=== PATIENT | male | born 1955 | race Caucasian/White ===

== ENCOUNTER 2022-02-04 16:12 | Inpatient (IN) | payer MEDICAID ==
[~2022-02-04] VITALS: Ht 182.9 cm; Wt 98.4 kg
[2022-02-04] MEDS ORDERED: DEXTROSE 50%-WATER 25 GM/50 ML SYRINGE IVP PRN (20:00)
[2022-02-04] MEDS ORDERED: ACETAMINOPHEN 325 MG TABLET PO PRN (20:00)
[2022-02-04] MEDS ORDERED: POLYETHYLENE GLYCOL 3350 17 GM PACKET PO PRN (20:15)
[2022-02-04] MEDS ORDERED: BISACODYL 10 MG RECTAL RECTAL SUPPOSITORY PR PRN (20:15)
[2022-02-04 21:20] VITALS: BP 151/82
[2022-02-04] MEDS: SENNA 187 MG TABLET PO SCH (21:25)
[2022-02-04] MEDS: ATORVASTATIN CALCIUM 40 MG TABLET PO SCH (21:25)
[2022-02-04] MEDS: DOCUSATE SODIUM 100 MG CAPSULE PO SCH (21:25)
[2022-02-04] MEDS: HydrALAZINE HCL 25 MG TABLET PO SCH (21:25)
[2022-02-04] MEDS: HEPARIN SODIUM,PORCINE 5,000 UNITS/ML VIAL SQ SCH (21:26)
[2022-02-04] MEDS: INSULIN GLARGINE,HUM.REC.ANLOG 100 UNITS/ML SQ SCH (21:31)
[2022-02-04] MEDS: INSULIN LISPRO 100 UNITS/ML SQ PRN (21:46)
[2022-02-04] MEDS ORDERED: INSULIN LISPRO 100 UNITS/ML SQ PRN (23:00)
[2022-02-04] MEDS ORDERED: INFLUENZA VIRUS VACCINE QVS 2022-23 (6MO+)/PF 60 MCG/0.5 ML SYRINGE IM. ONE (23:30)
[2022-02-04] MEDS ORDERED: PNEUMOCOCCAL VACCINE POLYVALENT 0.5 ML VIAL [PPSV23] IM. ONE (23:30)
[2022-02-04 23:31] LABS: GLUCOMETER DEV NAME(LOC) 2WR.1C; GLUCOSE,POINT OF CARE 241 MG/DL (70-110)
[2022-02-05 07:01] LABS: GLUCOMETER DEV NAME(LOC) 2WR.2B; GLUCOSE,POINT OF CARE 212 MG/DL (70-110)
[2022-02-05] MEDS ORDERED: INSULIN LISPRO 100 UNITS/ML SQ PRN (07:30)
[2022-02-05] MEDS ORDERED: INSULIN LISPRO 100 UNITS/ML SQ SCH (07:30)
[2022-02-05 07:51] LABS: BASOPHILS % (AUTO) 0.2 % (0.0-2.0); EOSINOPHILS % (AUTO) 2.3 % (1.0-6.0); HEMATOCRIT 44.4 % (41-53); HEMOGLOBIN 14.5 g/dL (13.5-17.5); LYMPHOCYTES # (AUTO) 2.8 K/uL (1.0-4.8); LYMPHOCYTES % (AUTO) 27.3 % (22.0-44.0); MEAN CORPUSCULAR HGB CONC 32.7 G/dL (31.0-37.0); MEAN CORPUSCULAR VOLUME 89 fL (80-100); NEUTROPHILS # (AUTO) 6.1 K/uL (1.8-7.7); NEUTROPHILS % (AUTO) 60.2 % (40.0-70.0); PLATELET COUNT (AUTO) 262 K/uL (150-450); RED BLOOD CELL COUNT(AUTO) 5.01 MIL/uL (4.50-5.90); RED CELL DISTRIBUTION WIDTH 15.1 % (11.5-14.5)
[2022-02-05] MEDS: INSULIN LISPRO 100 UNITS/ML SQ PRN ×4 (07:52→20:49)
[2022-02-05] MEDS: ETHYL ALCOHOL 62% ANTISEPTIC NASAL SANITIZER 0.6 ML AMPUL NASAL SCH ×2 (07:54→20:43)
[2022-02-05] MEDS: DOCUSATE SODIUM 100 MG CAPSULE PO SCH ×2 (07:57→20:44)
[2022-02-05] MEDS: MetFORMIN HCL 500 MG TABLET PO SCH ×2 (07:58→16:20)
[2022-02-05 07:59] LABS: ALBUMIN 3.2 g/dL (3.4-5.0); BILIRUBIN,TOTAL 0.7 mg/dL (0.1-1.0); CREATININE 1.43 mg/dL (0.60-1.30); POTASSIUM 3.3 mmol/L (3.5-5.1); TOTAL PROTEIN, SERUM 6.9 g/dL (6.4-8.2)
[2022-02-05] MEDS: ASPIRIN 81 MG CHEWABLE TABLET PO SCH (07:59)
[2022-02-05] MEDS: LOSARTAN POTASSIUM 50 MG TABLET PO SCH (08:01)
[2022-02-05] MEDS: AmLODIPine BESYLATE 10 MG TABLET PO SCH (08:03)
[2022-02-05] MEDS: HEPARIN SODIUM,PORCINE 5,000 UNITS/ML VIAL SQ SCH ×3 (08:04→20:44)
[2022-02-05] MEDS: HydrALAZINE HCL 25 MG TABLET PO SCH ×3 (08:05→20:44)
[2022-02-05] MEDS: CHLORTHALIDONE 25 MG TABLET PO SCH (09:00)
[2022-02-05 09:04] VITALS: BP 145/90
[2022-02-05 13:58] LABS: GLUCOMETER DEV NAME(LOC) 2WR.1C; GLUCOSE,POINT OF CARE 242 MG/DL (70-110)
[2022-02-05] MEDS: INSULIN LISPRO 100 UNITS/ML SQ SCH ×2 (14:26→18:23)
[2022-02-05 19:17] LABS: GLUCOMETER DEV NAME(LOC) 2WR.1C; GLUCOSE,POINT OF CARE 283 MG/DL (70-110)
[2022-02-05 20:30] VITALS: BP 136/85
[2022-02-05] MEDS: SENNA 187 MG TABLET PO SCH (20:44)
[2022-02-05] MEDS: ATORVASTATIN CALCIUM 40 MG TABLET PO SCH (20:44)
[2022-02-05] MEDS: INSULIN GLARGINE,HUM.REC.ANLOG 100 UNITS/ML SQ SCH (20:48)
[2022-02-05] MEDS: MELATONIN 3 MG TABLET PO PRN (20:51)
[2022-02-05 21:17] LABS: GLUCOMETER DEV NAME(LOC) 2WR.2B; GLUCOSE,POINT OF CARE 177 MG/DL (70-110)
[2022-02-06] MEDS ORDERED: DOCU-385 PO (02:58)
[2022-02-06] MEDS ORDERED: AMLO-258 PO (02:58)
[2022-02-06] MEDS ORDERED: INSLAN SQ (02:58)
[2022-02-06] MEDS ORDERED: HYDR25TA84 PO (02:58)
[2022-02-06] MEDS ORDERED: CHL25 PO (02:58)
[2022-02-06] MEDS ORDERED: METF-1211 PO (02:58)
[2022-02-06] MEDS ORDERED: ATOR40TA28 PO (02:58)
[2022-02-06] MEDS ORDERED: LOSA-381 PO (02:58)
[2022-02-06] MEDS ORDERED: SENN8.6T90 PO (02:58)
[2022-02-06] MEDS ORDERED: ASPI-1450 PO (02:58)
[2022-02-06 07:52] LABS: GLUCOMETER DEV NAME(LOC) 2WR.2B; GLUCOSE,POINT OF CARE 142 MG/DL (70-110)
[2022-02-06] MEDS: MetFORMIN HCL 500 MG TABLET PO SCH ×2 (08:00→17:37)
[2022-02-06] MEDS: HEPARIN SODIUM,PORCINE 5,000 UNITS/ML VIAL SQ SCH ×3 (08:01→20:49)
[2022-02-06] MEDS: ASPIRIN 81 MG CHEWABLE TABLET PO SCH (08:01)
[2022-02-06] MEDS: AmLODIPine BESYLATE 10 MG TABLET PO SCH (08:01)
[2022-02-06] MEDS: DOCUSATE SODIUM 100 MG CAPSULE PO SCH ×2 (08:01→20:49)
[2022-02-06] MEDS: LOSARTAN POTASSIUM 50 MG TABLET PO SCH (08:01)
[2022-02-06] MEDS: INSULIN LISPRO 100 UNITS/ML SQ SCH ×3 (08:03→17:39)
[2022-02-06] MEDS: INSULIN LISPRO 100 UNITS/ML SQ PRN ×4 (08:05→20:55)
[2022-02-06] MEDS: HydrALAZINE HCL 25 MG TABLET PO SCH ×3 (08:13→20:49)
[2022-02-06] MEDS: ETHYL ALCOHOL 62% ANTISEPTIC NASAL SANITIZER 0.6 ML AMPUL NASAL SCH ×2 (08:13→20:53)
[2022-02-06 08:15] VITALS: BP 148/95
[2022-02-06] MEDS: CHLORTHALIDONE 25 MG TABLET PO SCH (09:07)
[2022-02-06] MEDS ORDERED: POTASSIUM CHLORIDE 20 MEQ ER TABLET PO ONE (09:15)
[2022-02-06 10:02] VITALS: BP 128/85
[2022-02-06 12:10] VITALS: BP 127/80
[2022-02-06 13:13] LABS: GLUCOMETER DEV NAME(LOC) 2WR.2B; GLUCOSE,POINT OF CARE 174 MG/DL (70-110)
[2022-02-06 17:00] VITALS: BP 133/67
[2022-02-06 17:46] LABS: GLUCOMETER DEV NAME(LOC) 2WR.2B; GLUCOSE,POINT OF CARE 221 MG/DL (70-110)
[2022-02-06 20:10] VITALS: BP 147/79
[2022-02-06] MEDS: SENNA 187 MG TABLET PO SCH (20:49)
[2022-02-06] MEDS: ATORVASTATIN CALCIUM 40 MG TABLET PO SCH (20:49)
[2022-02-06] MEDS: MELATONIN 3 MG TABLET PO PRN (20:49)
[2022-02-06] MEDS: INSULIN GLARGINE,HUM.REC.ANLOG 100 UNITS/ML SQ SCH (20:54)
[2022-02-06 21:21] LABS: GLUCOMETER DEV NAME(LOC) 2WR.2B; GLUCOSE,POINT OF CARE 161 MG/DL (70-110)
[2022-02-07 07:11] LABS: GLUCOMETER DEV NAME(LOC) 2WR.2B; GLUCOSE,POINT OF CARE 148 MG/DL (70-110)
[2022-02-07 08:00] LABS: CREATININE 1.42 mg/dL (0.60-1.30); POTASSIUM 3.5 mmol/L (3.5-5.1)
[2022-02-07 09:03] VITALS: BP 133/79
[2022-02-07] MEDS: INSULIN LISPRO 100 UNITS/ML SQ SCH ×3 (09:21→17:33)
[2022-02-07] MEDS: INSULIN LISPRO 100 UNITS/ML SQ PRN ×3 (09:21→17:33)
[2022-02-07] MEDS: DOCUSATE SODIUM 250 MG CAPSULE PO SCH ×2 (09:24→20:42)
[2022-02-07] MEDS: HEPARIN SODIUM,PORCINE 5,000 UNITS/ML VIAL SQ SCH ×3 (09:24→20:41)
[2022-02-07] MEDS: ASPIRIN 81 MG CHEWABLE TABLET PO SCH (09:24)
[2022-02-07] MEDS: HydrALAZINE HCL 25 MG TABLET PO SCH ×3 (09:25→20:42)
[2022-02-07] MEDS: AmLODIPine BESYLATE 10 MG TABLET PO SCH (09:25)
[2022-02-07] MEDS: MetFORMIN HCL 500 MG TABLET PO SCH ×2 (09:25→17:32)
[2022-02-07] MEDS: LOSARTAN POTASSIUM 50 MG TABLET PO SCH (09:26)
[2022-02-07] MEDS: ETHYL ALCOHOL 62% ANTISEPTIC NASAL SANITIZER 0.6 ML AMPUL NASAL SCH ×2 (09:29→20:54)
[2022-02-07] MEDS: CHLORTHALIDONE 25 MG TABLET PO SCH (09:29)
[2022-02-07] MEDS: MECLIZINE HCL 25 MG TABLET PO PRN (12:20)
[2022-02-07 12:56] LABS: GLUCOMETER DEV NAME(LOC) 2WR.1C; GLUCOSE,POINT OF CARE 154 MG/DL (70-110)
[2022-02-07 18:32] LABS: GLUCOMETER DEV NAME(LOC) 2WR.1C; GLUCOSE,POINT OF CARE 141 MG/DL (70-110)
[2022-02-07 20:00] VITALS: BP 126/89
[2022-02-07] MEDS: ATORVASTATIN CALCIUM 40 MG TABLET PO SCH (20:41)
[2022-02-07] MEDS: INSULIN GLARGINE,HUM.REC.ANLOG 100 UNITS/ML SQ SCH (20:41)
[2022-02-07] MEDS: MELATONIN 3 MG TABLET PO PRN (20:42)
[2022-02-07] MEDS: SENNA 187 MG TABLET PO SCH (20:42)
[2022-02-07 21:31] LABS: GLUCOMETER DEV NAME(LOC) 2WR.1C; GLUCOSE,POINT OF CARE 131 MG/DL (70-110)
[2022-02-08 07:51] LABS: GLUCOMETER DEV NAME(LOC) 2WR.1C; GLUCOSE,POINT OF CARE 113 MG/DL (70-110)
[2022-02-08] MEDS: HydrALAZINE HCL 25 MG TABLET PO SCH ×3 (08:12→20:47)
[2022-02-08] MEDS: HEPARIN SODIUM,PORCINE 5,000 UNITS/ML VIAL SQ SCH ×3 (08:12→20:48)
[2022-02-08] MEDS: MetFORMIN HCL 500 MG TABLET PO SCH ×2 (08:12→17:14)
[2022-02-08] MEDS: INSULIN LISPRO 100 UNITS/ML SQ SCH ×3 (08:13→17:07)
[2022-02-08] MEDS: ETHYL ALCOHOL 62% ANTISEPTIC NASAL SANITIZER 0.6 ML AMPUL NASAL SCH ×2 (08:14→20:47)
[2022-02-08] MEDS: DOCUSATE SODIUM 250 MG CAPSULE PO SCH ×2 (08:15→20:47)
[2022-02-08] MEDS: ASPIRIN 81 MG CHEWABLE TABLET PO SCH (08:15)
[2022-02-08] MEDS: LOSARTAN POTASSIUM 50 MG TABLET PO SCH (08:17)
[2022-02-08] MEDS: AmLODIPine BESYLATE 10 MG TABLET PO SCH (08:17)
[2022-02-08] MEDS: CHLORTHALIDONE 25 MG TABLET PO SCH (08:17)
[2022-02-08 08:56] VITALS: BP 138/68
[2022-02-08] MEDS: INSULIN LISPRO 100 UNITS/ML SQ PRN (11:36)
[2022-02-08 11:47] LABS: GLUCOMETER DEV NAME(LOC) 2WR.2B; GLUCOSE,POINT OF CARE 181 MG/DL (70-110)
[2022-02-08 17:10] VITALS: BP 127/76
[2022-02-08 17:47] LABS: GLUCOMETER DEV NAME(LOC) 2WR.2B; GLUCOSE,POINT OF CARE 126 MG/DL (70-110)
[2022-02-08 20:14] VITALS: BP 138/91
[2022-02-08] MEDS: ATORVASTATIN CALCIUM 40 MG TABLET PO SCH (20:47)
[2022-02-08] MEDS: SENNA 187 MG TABLET PO SCH (20:47)
[2022-02-08] MEDS: MELATONIN 3 MG TABLET PO PRN (20:47)
[2022-02-08] MEDS: INSULIN GLARGINE,HUM.REC.ANLOG 100 UNITS/ML SQ SCH (20:48)
[2022-02-08 21:02] LABS: GLUCOMETER DEV NAME(LOC) 2WR.2B; GLUCOSE,POINT OF CARE 138 MG/DL (70-110)
[2022-02-09 07:21] LABS: GLUCOMETER DEV NAME(LOC) 2WR.1C; GLUCOSE,POINT OF CARE 123 MG/DL (70-110)
[2022-02-09] MEDS: MetFORMIN HCL 500 MG TABLET PO SCH ×2 (07:21→15:53)
[2022-02-09] MEDS: HydrALAZINE HCL 25 MG TABLET PO SCH ×3 (07:21→20:58)
[2022-02-09] MEDS: AmLODIPine BESYLATE 10 MG TABLET PO SCH (07:21)
[2022-02-09] MEDS: CHLORTHALIDONE 25 MG TABLET PO SCH (07:21)
[2022-02-09] MEDS: ASPIRIN 81 MG CHEWABLE TABLET PO SCH (07:21)
[2022-02-09] MEDS: DOCUSATE SODIUM 250 MG CAPSULE PO SCH ×2 (07:21→20:58)
[2022-02-09] MEDS: LOSARTAN POTASSIUM 50 MG TABLET PO SCH (07:22)
[2022-02-09] MEDS: HEPARIN SODIUM,PORCINE 5,000 UNITS/ML VIAL SQ SCH ×3 (07:22→20:58)
[2022-02-09] MEDS: ETHYL ALCOHOL 62% ANTISEPTIC NASAL SANITIZER 0.6 ML AMPUL NASAL SCH ×2 (07:22→20:58)
[2022-02-09] MEDS: INSULIN LISPRO 100 UNITS/ML SQ SCH ×3 (07:33→16:44)
[2022-02-09 10:04] VITALS: BP 116/75
[2022-02-09] MEDS: INSULIN LISPRO 100 UNITS/ML SQ PRN (11:39)
[2022-02-09 11:42] LABS: GLUCOMETER DEV NAME(LOC) 2WR.2B; GLUCOSE,POINT OF CARE 179 MG/DL (70-110)
[2022-02-09 15:44] VITALS: BP 124/67
[2022-02-09 17:01] LABS: GLUCOMETER DEV NAME(LOC) 2WR.2B; GLUCOSE,POINT OF CARE 122 MG/DL (70-110)
[2022-02-09 20:01] VITALS: BP 153/89
[2022-02-09] MEDS: MELATONIN 3 MG TABLET PO PRN (20:58)
[2022-02-09] MEDS: ATORVASTATIN CALCIUM 40 MG TABLET PO SCH (20:58)
[2022-02-09] MEDS: SENNA 187 MG TABLET PO SCH (20:58)
[2022-02-09] MEDS: INSULIN GLARGINE,HUM.REC.ANLOG 100 UNITS/ML SQ SCH (20:59)
[2022-02-09 21:00] VITALS: BP 137/88
[2022-02-10 05:36] LABS: GLUCOMETER DEV NAME(LOC) 2WR.1C; GLUCOSE,POINT OF CARE 98 MG/DL (70-110)
[2022-02-10 07:00] VITALS: BP_SYST 13
[2022-02-10 07:16] LABS: GLUCOMETER DEV NAME(LOC) 2WR.2B; GLUCOSE,POINT OF CARE 96 MG/DL (70-110)
[2022-02-10] MEDS: CHLORTHALIDONE 25 MG TABLET PO SCH (08:15)
[2022-02-10] MEDS: ASPIRIN 81 MG CHEWABLE TABLET PO SCH (08:15)
[2022-02-10] MEDS: HydrALAZINE HCL 25 MG TABLET PO SCH ×3 (08:15→20:25)
[2022-02-10] MEDS: MetFORMIN HCL 500 MG TABLET PO SCH ×2 (08:15→17:38)
[2022-02-10] MEDS: DOCUSATE SODIUM 250 MG CAPSULE PO SCH ×2 (08:15→20:25)
[2022-02-10] MEDS: LOSARTAN POTASSIUM 50 MG TABLET PO SCH (08:15)
[2022-02-10] MEDS: AmLODIPine BESYLATE 10 MG TABLET PO SCH (08:15)
[2022-02-10] MEDS: HEPARIN SODIUM,PORCINE 5,000 UNITS/ML VIAL SQ SCH ×3 (08:16→20:25)
[2022-02-10] MEDS: INSULIN LISPRO 100 UNITS/ML SQ SCH ×3 (08:19→16:50)
[2022-02-10 08:41] VITALS: BP 143/90
[2022-02-10] MEDS: ETHYL ALCOHOL 62% ANTISEPTIC NASAL SANITIZER 0.6 ML AMPUL NASAL SCH ×2 (10:07→20:25)
[2022-02-10 12:26] LABS: GLUCOMETER DEV NAME(LOC) 2WR.2B; GLUCOSE,POINT OF CARE 133 MG/DL (70-110)
[2022-02-10] MEDS: INSULIN LISPRO 100 UNITS/ML SQ PRN ×2 (16:51→20:37)
[2022-02-10 17:57] LABS: GLUCOMETER DEV NAME(LOC) 2WR.2B; GLUCOSE,POINT OF CARE 162 MG/DL (70-110)
[2022-02-10 20:00] VITALS: BP 146/86
[2022-02-10] MEDS: SENNA 187 MG TABLET PO SCH (20:25)
[2022-02-10] MEDS: ATORVASTATIN CALCIUM 40 MG TABLET PO SCH (20:25)
[2022-02-10] MEDS: INSULIN GLARGINE,HUM.REC.ANLOG 100 UNITS/ML SQ SCH (20:35)
[2022-02-10 20:55] LABS: GLUCOMETER DEV NAME(LOC) 2WR.2B; GLUCOSE,POINT OF CARE 176 MG/DL (70-110)
[2022-02-11 06:32] LABS: GLUCOMETER DEV NAME(LOC) 2WR.2B; GLUCOSE,POINT OF CARE 113 MG/DL (70-110)
[2022-02-11 08:00] VITALS: BP 136/83
[2022-02-11] MEDS: HEPARIN SODIUM,PORCINE 5,000 UNITS/ML VIAL SQ SCH ×3 (08:16→20:32)
[2022-02-11] MEDS: MetFORMIN HCL 500 MG TABLET PO SCH ×2 (08:17→17:29)
[2022-02-11] MEDS: CHLORTHALIDONE 25 MG TABLET PO SCH (08:18)
[2022-02-11] MEDS: LOSARTAN POTASSIUM 50 MG TABLET PO SCH (08:18)
[2022-02-11] MEDS: ASPIRIN 81 MG CHEWABLE TABLET PO SCH (08:18)
[2022-02-11] MEDS: HydrALAZINE HCL 25 MG TABLET PO SCH ×3 (08:19→20:32)
[2022-02-11] MEDS: AmLODIPine BESYLATE 10 MG TABLET PO SCH (08:20)
[2022-02-11] MEDS: ETHYL ALCOHOL 62% ANTISEPTIC NASAL SANITIZER 0.6 ML AMPUL NASAL SCH ×2 (08:20→20:30)
[2022-02-11] MEDS: DOCUSATE SODIUM 250 MG CAPSULE PO SCH ×2 (08:20→20:35)
[2022-02-11] MEDS: INSULIN LISPRO 100 UNITS/ML SQ SCH ×3 (08:25→17:35)
[2022-02-11] MEDS: MECLIZINE HCL 25 MG TABLET PO PRN (09:28)
[2022-02-11 19:36] LABS: GLUCOMETER DEV NAME(LOC) 2WR.2B; GLUCOSE,POINT OF CARE 127 MG/DL (70-110)
[2022-02-11 20:01] VITALS: BP 128/72
[2022-02-11] MEDS: SENNA 187 MG TABLET PO SCH (20:31)
[2022-02-11] MEDS: MELATONIN 3 MG TABLET PO PRN (20:32)
[2022-02-11] MEDS: ATORVASTATIN CALCIUM 40 MG TABLET PO SCH (20:32)
[2022-02-11] MEDS: INSULIN GLARGINE,HUM.REC.ANLOG 100 UNITS/ML SQ SCH (20:33)
[2022-02-11 20:41] LABS: GLUCOMETER DEV NAME(LOC) 2WR.2B; GLUCOSE,POINT OF CARE 121 MG/DL (70-110)
[2022-02-11 21:26] LABS: GLUCOMETER DEV NAME(LOC) 2WR.1C; GLUCOSE,POINT OF CARE 94 MG/DL (70-110)
[2022-02-12 07:46] LABS: GLUCOMETER DEV NAME(LOC) 2WR.2B; GLUCOSE,POINT OF CARE 99 MG/DL (70-110)
[2022-02-12 08:00] VITALS: BP 138/87
[2022-02-12] MEDS: ETHYL ALCOHOL 62% ANTISEPTIC NASAL SANITIZER 0.6 ML AMPUL NASAL SCH ×2 (08:02→20:50)
[2022-02-12] MEDS: MetFORMIN HCL 500 MG TABLET PO SCH ×2 (08:02→17:40)
[2022-02-12] MEDS: CHLORTHALIDONE 25 MG TABLET PO SCH (08:03)
[2022-02-12] MEDS: HydrALAZINE HCL 25 MG TABLET PO SCH ×3 (08:03→20:51)
[2022-02-12] MEDS: AmLODIPine BESYLATE 10 MG TABLET PO SCH (08:03)
[2022-02-12] MEDS: ASPIRIN 81 MG CHEWABLE TABLET PO SCH (08:03)
[2022-02-12] MEDS: DOCUSATE SODIUM 250 MG CAPSULE PO SCH ×2 (08:03→20:51)
[2022-02-12] MEDS: INSULIN LISPRO 100 UNITS/ML SQ SCH ×3 (08:06→17:49)
[2022-02-12] MEDS: HEPARIN SODIUM,PORCINE 5,000 UNITS/ML VIAL SQ SCH ×3 (08:07→20:51)
[2022-02-12] MEDS: LOSARTAN POTASSIUM 50 MG TABLET PO SCH (08:09)
[2022-02-12] MEDS: MECLIZINE HCL 25 MG TABLET PO PRN (08:45)
[2022-02-12 13:56] LABS: GLUCOMETER DEV NAME(LOC) 2WR.2B; GLUCOSE,POINT OF CARE 88 MG/DL (70-110)
[2022-02-12 16:38] VITALS: BP 122/78
[2022-02-12] MEDS: ATORVASTATIN CALCIUM 40 MG TABLET PO SCH (20:51)
[2022-02-12] MEDS: SENNA 187 MG TABLET PO SCH (20:51)
[2022-02-12] MEDS: MELATONIN 3 MG TABLET PO PRN (20:51)
[2022-02-12] MEDS: INSULIN GLARGINE,HUM.REC.ANLOG 100 UNITS/ML SQ SCH (20:58)
[2022-02-12] MEDS: INSULIN LISPRO 100 UNITS/ML SQ PRN (20:59)
[2022-02-12 21:00] VITALS: BP 139/70
[2022-02-12 21:16] LABS: GLUCOMETER DEV NAME(LOC) 2WR.2B; GLUCOSE,POINT OF CARE 187 MG/DL (70-110)
[2022-02-13 05:32] LABS: GLUCOMETER DEV NAME(LOC) 2WR.1C; GLUCOSE,POINT OF CARE 105 MG/DL (70-110)
[2022-02-13 07:00] LABS: GLUCOMETER DEV NAME(LOC) 2WR.2B; GLUCOSE,POINT OF CARE 100 MG/DL (70-110)
[2022-02-13 08:32] VITALS: BP 151/87
[2022-02-13] MEDS: ETHYL ALCOHOL 62% ANTISEPTIC NASAL SANITIZER 0.6 ML AMPUL NASAL SCH ×2 (08:37→21:28)
[2022-02-13] MEDS: DOCUSATE SODIUM 250 MG CAPSULE PO SCH ×2 (08:38→21:19)
[2022-02-13] MEDS: ASPIRIN 81 MG CHEWABLE TABLET PO SCH (08:38)
[2022-02-13] MEDS: MetFORMIN HCL 500 MG TABLET PO SCH ×2 (08:38→17:42)
[2022-02-13] MEDS: HydrALAZINE HCL 25 MG TABLET PO SCH ×3 (08:39→21:20)
[2022-02-13] MEDS: LOSARTAN POTASSIUM 50 MG TABLET PO SCH (08:39)
[2022-02-13] MEDS: CHLORTHALIDONE 25 MG TABLET PO SCH (08:39)
[2022-02-13] MEDS: AmLODIPine BESYLATE 10 MG TABLET PO SCH (08:40)
[2022-02-13] MEDS: MECLIZINE HCL 25 MG TABLET PO PRN (08:40)
[2022-02-13] MEDS: HEPARIN SODIUM,PORCINE 5,000 UNITS/ML VIAL SQ SCH ×3 (08:40→21:20)
[2022-02-13] MEDS: INSULIN LISPRO 100 UNITS/ML SQ SCH ×3 (08:48→17:44)
[2022-02-13 12:56] LABS: GLUCOMETER DEV NAME(LOC) 2WR.2B; GLUCOSE,POINT OF CARE 115 MG/DL (70-110)
[2022-02-13 18:06] LABS: GLUCOMETER DEV NAME(LOC) 2WR.2B; GLUCOSE,POINT OF CARE 133 MG/DL (70-110)
[2022-02-13 20:22] VITALS: BP 118/69
[2022-02-13 20:36] LABS: GLUCOMETER DEV NAME(LOC) 2WR.2B; GLUCOSE,POINT OF CARE 158 MG/DL (70-110)
[2022-02-13] MEDS: INSULIN GLARGINE,HUM.REC.ANLOG 100 UNITS/ML SQ SCH (21:15)
[2022-02-13] MEDS: INSULIN LISPRO 100 UNITS/ML SQ PRN (21:19)
[2022-02-13] MEDS: SENNA 187 MG TABLET PO SCH (21:19)
[2022-02-13] MEDS: MELATONIN 3 MG TABLET PO PRN (21:19)
[2022-02-13] MEDS: ATORVASTATIN CALCIUM 40 MG TABLET PO SCH (21:20)
[2022-02-14 07:33] LABS: CALCIUM, TOTAL 8.9 mg/dL (8.8-10.5); CREATININE 1.41 mg/dL (0.60-1.30); POTASSIUM 3.5 mmol/L (3.5-5.1)
[2022-02-14] MEDS: MetFORMIN HCL 500 MG TABLET PO SCH ×2 (07:46→17:47)
[2022-02-14] MEDS: INSULIN LISPRO 100 UNITS/ML SQ SCH ×3 (07:53→17:49)
[2022-02-14] MEDS: ETHYL ALCOHOL 62% ANTISEPTIC NASAL SANITIZER 0.6 ML AMPUL NASAL SCH ×2 (07:55→21:11)
[2022-02-14] MEDS: AmLODIPine BESYLATE 10 MG TABLET PO SCH (07:56)
[2022-02-14] MEDS: DOCUSATE SODIUM 250 MG CAPSULE PO SCH ×2 (07:56→21:11)
[2022-02-14] MEDS: ASPIRIN 81 MG CHEWABLE TABLET PO SCH (07:56)
[2022-02-14] MEDS: CHLORTHALIDONE 25 MG TABLET PO SCH (07:57)
[2022-02-14] MEDS: HEPARIN SODIUM,PORCINE 5,000 UNITS/ML VIAL SQ SCH ×3 (07:57→21:11)
[2022-02-14] MEDS: HydrALAZINE HCL 25 MG TABLET PO SCH ×3 (07:57→21:11)
[2022-02-14] MEDS: LOSARTAN POTASSIUM 50 MG TABLET PO SCH (07:57)
[2022-02-14 08:30] VITALS: BP 133/78
[2022-02-14] MEDS: MECLIZINE HCL 25 MG TABLET PO PRN (09:22)
[2022-02-14 11:41] LABS: GLUCOMETER DEV NAME(LOC) 2WR.2B; GLUCOSE,POINT OF CARE 112 MG/DL (70-110)
[2022-02-14 16:00] LABS: GLUCOMETER DEV NAME(LOC) 2WR.1C; GLUCOSE,POINT OF CARE 120 MG/DL (70-110)
[2022-02-14] MEDS: INSULIN LISPRO 100 UNITS/ML SQ PRN (17:50)
[2022-02-14 18:01] LABS: GLUCOMETER DEV NAME(LOC) 2WR.1C; GLUCOSE,POINT OF CARE 144 MG/DL (70-110)
[2022-02-14 20:00] VITALS: BP 121/70
[2022-02-14] MEDS: INSULIN GLARGINE,HUM.REC.ANLOG 100 UNITS/ML SQ SCH (21:10)
[2022-02-14] MEDS: SENNA 187 MG TABLET PO SCH (21:11)
[2022-02-14] MEDS: MELATONIN 3 MG TABLET PO PRN (21:11)
[2022-02-14] MEDS: ATORVASTATIN CALCIUM 40 MG TABLET PO SCH (21:11)
[2022-02-14 22:26] LABS: GLUCOMETER DEV NAME(LOC) 2WR.1C; GLUCOSE,POINT OF CARE 125 MG/DL (70-110)
[2022-02-15] MEDS ORDERED: INSU100V SQ ×4 (00:43→10:29)
[2022-02-15] MEDS ORDERED: LOSA-382 PO ×2 (00:43→10:29)
[2022-02-15 07:52] LABS: GLUCOMETER DEV NAME(LOC) 2WR.2B; GLUCOSE,POINT OF CARE 115 MG/DL (70-110)
[2022-02-15] MEDS: MetFORMIN HCL 500 MG TABLET PO SCH ×2 (07:54→17:43)
[2022-02-15] MEDS: LOSARTAN POTASSIUM 50 MG TABLET PO SCH (07:57)
[2022-02-15] MEDS: ETHYL ALCOHOL 62% ANTISEPTIC NASAL SANITIZER 0.6 ML AMPUL NASAL SCH ×2 (07:57→20:55)
[2022-02-15] MEDS: HydrALAZINE HCL 25 MG TABLET PO SCH ×3 (07:58→20:55)
[2022-02-15] MEDS: DOCUSATE SODIUM 250 MG CAPSULE PO SCH ×2 (07:58→20:55)
[2022-02-15] MEDS: CHLORTHALIDONE 25 MG TABLET PO SCH (07:58)
[2022-02-15] MEDS: AmLODIPine BESYLATE 10 MG TABLET PO SCH (07:58)
[2022-02-15] MEDS: ASPIRIN 81 MG CHEWABLE TABLET PO SCH (07:58)
[2022-02-15] MEDS: HEPARIN SODIUM,PORCINE 5,000 UNITS/ML VIAL SQ SCH ×3 (07:59→20:55)
[2022-02-15] MEDS: INSULIN LISPRO 100 UNITS/ML SQ SCH ×3 (08:01→17:44)
[2022-02-15] MEDS: MECLIZINE HCL 25 MG TABLET PO PRN (08:31)
[2022-02-15 08:45] VITALS: BP 129/81
[2022-02-15] MEDS ORDERED: CHL25 PO (10:29)
[2022-02-15] MEDS ORDERED: HYDR25TA84 PO (10:29)
[2022-02-15] MEDS ORDERED: SENN-187 PO (10:29)
[2022-02-15] MEDS ORDERED: INSLAN SQ (10:29)
[2022-02-15] MEDS ORDERED: ASPI81 PO (10:29)
[2022-02-15] MEDS ORDERED: MECL-160 PO (10:29)
[2022-02-15] MEDS ORDERED: DOCU-350 PO (10:29)
[2022-02-15] MEDS ORDERED: AMLO-258 PO (10:29)
[2022-02-15] MEDS ORDERED: ATOR40TA71 PO (10:29)
[2022-02-15] MEDS ORDERED: METF-1211 PO (10:29)
[2022-02-15 13:11] LABS: GLUCOMETER DEV NAME(LOC) 2WR.2B; GLUCOSE,POINT OF CARE 78 MG/DL (70-110)
[2022-02-15 20:21] LABS: GLUCOMETER DEV NAME(LOC) 2WR.2B; GLUCOSE,POINT OF CARE 119 MG/DL (70-110)
[2022-02-15] MEDS: SENNA 187 MG TABLET PO SCH (20:55)
[2022-02-15] MEDS: ATORVASTATIN CALCIUM 40 MG TABLET PO SCH (20:55)
[2022-02-15] MEDS: MELATONIN 3 MG TABLET PO PRN (20:56)
[2022-02-15] MEDS: INSULIN GLARGINE,HUM.REC.ANLOG 100 UNITS/ML SQ SCH (21:10)
[2022-02-15 21:35] LABS: GLUCOMETER DEV NAME(LOC) 2WR.2B; GLUCOSE,POINT OF CARE 140 MG/DL (70-110)
[2022-02-15 23:43] VITALS: BP 117/83
[2022-02-16 07:41] LABS: GLUCOMETER DEV NAME(LOC) 2WR.2B; GLUCOSE,POINT OF CARE 88 MG/DL (70-110)
[2022-02-16 07:55] VITALS: BP 133/84
[2022-02-16] MEDS: MetFORMIN HCL 500 MG TABLET PO SCH ×2 (08:30→17:43)
[2022-02-16] MEDS: ETHYL ALCOHOL 62% ANTISEPTIC NASAL SANITIZER 0.6 ML AMPUL NASAL SCH ×2 (08:31→20:43)
[2022-02-16] MEDS: HydrALAZINE HCL 25 MG TABLET PO SCH ×3 (08:31→20:43)
[2022-02-16] MEDS: DOCUSATE SODIUM 250 MG CAPSULE PO SCH ×2 (08:32→20:43)
[2022-02-16] MEDS: ASPIRIN 81 MG CHEWABLE TABLET PO SCH (08:32)
[2022-02-16] MEDS: LOSARTAN POTASSIUM 50 MG TABLET PO SCH (08:32)
[2022-02-16] MEDS: CHLORTHALIDONE 25 MG TABLET PO SCH (08:32)
[2022-02-16] MEDS: AmLODIPine BESYLATE 10 MG TABLET PO SCH (08:32)
[2022-02-16] MEDS: HEPARIN SODIUM,PORCINE 5,000 UNITS/ML VIAL SQ SCH ×3 (08:33→20:44)
[2022-02-16] MEDS: INSULIN LISPRO 100 UNITS/ML SQ SCH ×3 (08:38→17:45)
[2022-02-16 13:16] LABS: GLUCOMETER DEV NAME(LOC) 2WR.2B; GLUCOSE,POINT OF CARE 91 MG/DL (70-110)
[2022-02-16 15:45] VITALS: BP 129/71
[2022-02-16 17:56] LABS: GLUCOMETER DEV NAME(LOC) 2WR.2B; GLUCOSE,POINT OF CARE 126 MG/DL (70-110)
[2022-02-16] MEDS: ATORVASTATIN CALCIUM 40 MG TABLET PO SCH (20:43)
[2022-02-16] MEDS: SENNA 187 MG TABLET PO SCH (20:43)
[2022-02-16] MEDS: MELATONIN 3 MG TABLET PO PRN (20:43)
[2022-02-16] MEDS: INSULIN GLARGINE,HUM.REC.ANLOG 100 UNITS/ML SQ SCH (20:51)
[2022-02-16 21:00] VITALS: BP 145/81
[2022-02-16 21:20] LABS: GLUCOMETER DEV NAME(LOC) 2WR.2B; GLUCOSE,POINT OF CARE 97 MG/DL (70-110)
[2022-02-17 07:06] LABS: GLUCOMETER DEV NAME(LOC) 2WR.1C; GLUCOSE,POINT OF CARE 89 MG/DL (70-110)
[2022-02-17 08:00] VITALS: BP 143/91
[2022-02-17] MEDS: MetFORMIN HCL 500 MG TABLET PO SCH (08:02)
[2022-02-17] MEDS: HEPARIN SODIUM,PORCINE 5,000 UNITS/ML VIAL SQ SCH (08:02)
[2022-02-17] MEDS: HydrALAZINE HCL 25 MG TABLET PO SCH (08:02)
[2022-02-17] MEDS: AmLODIPine BESYLATE 10 MG TABLET PO SCH (08:03)
[2022-02-17] MEDS: CHLORTHALIDONE 25 MG TABLET PO SCH (08:03)
[2022-02-17] MEDS: DOCUSATE SODIUM 250 MG CAPSULE PO SCH (08:03)
[2022-02-17] MEDS: LOSARTAN POTASSIUM 50 MG TABLET PO SCH (08:03)
[2022-02-17] MEDS: ASPIRIN 81 MG CHEWABLE TABLET PO SCH (08:04)
[2022-02-17] MEDS: ETHYL ALCOHOL 62% ANTISEPTIC NASAL SANITIZER 0.6 ML AMPUL NASAL SCH (08:04)
[2022-02-17] MEDS: INSULIN LISPRO 100 UNITS/ML SQ SCH (08:10)
[2022-02-17 12:21] LABS: GLUCOMETER DEV NAME(LOC) 2WR.1C; GLUCOSE,POINT OF CARE 96 MG/DL (70-110)
== END 2022-02-17 11:30 | disposition home or self-care (01) | DRG 45 ==
LOC: 2WR 18:40
PROVIDERS: ADMIT Physical Medicine & Rehabilitation; ATTEND Physical Medicine & Rehabilitation
DX: I63.9 Cerebral infarction, unspecified (principal); E46 Unspecified protein-calorie malnutrition; E11.22 Type 2 diabetes mellitus with diabetic chronic kidney disease; G81.94 Hemiplegia, unspecified affecting left nondominant side; R47.01 Aphasia; E11.65 Type 2 diabetes mellitus with hyperglycemia; E78.5 Hyperlipidemia, unspecified; E87.6 Hypokalemia; I12.9 Hypertensive chronic kidney disease with stage 1 through stage 4 chronic kidney disease, or unspecified chronic kidney disease; N18.9 Chronic kidney disease, unspecified; Z74.1 Need for assistance with personal care; R42 Dizziness and giddiness; R47.1 Dysarthria and anarthria; R13.10 Dysphagia, unspecified; E78.00 Pure hypercholesterolemia, unspecified; Z87.891 Personal history of nicotine dependence; Z79.899 Other long term (current) drug therapy; Z79.82 Long term (current) use of aspirin; Z79.4 Long term (current) use of insulin; Z68.29 Body mass index [BMI] 29.0-29.9, adult
CPT/HCPCS: 80048; 80053; 82962; 85025; 87081; 92523; J1644; J1815